=== PATIENT | female | born 1950 | race Caucasian/White ===

== ENCOUNTER → 2020-10-25 14:27 | Outpatient (BNVA) | payer MEDICARE, SELFPAY | PROVIDERS: Family Provider Nurse Practitioner Family; PCP Nurse Practitioner Family; Visit Provider Specialist | DX: R56.9 Unspecified convulsions (principal); I10 Essential (primary) hypertension; G47.33 Obstructive sleep apnea (adult) (pediatric); R20.0 Anesthesia of skin; R20.2 Paresthesia of skin | CPT/HCPCS: 99204 ==

== ENCOUNTER 2020-10-25 16:31 | Outpatient (CLI) | payer MEDICARE, SELFPAY ==
[2020-10-25 21:55] LABS: Vitamin B12 476 pg/mL (232-1245)
== END 2020-10-25 16:32 | disposition home or self-care (01) ==
PROVIDERS: PCP Family Medicine; Visit Provider Specialist
DX: R20.0 Anesthesia of skin (principal); R20.2 Paresthesia of skin
CPT/HCPCS: 36415; 82607

== ENCOUNTER → 2020-11-05 14:50 | Outpatient (BNVA) | payer MEDICARE, SELFPAY | PROVIDERS: PCP Family Medicine; Visit Provider Specialist | DX: R56.9 Unspecified convulsions (principal); G45.0 Vertebro-basilar artery syndrome | CPT/HCPCS: 95816 ==

== ENCOUNTER 2020-11-15 08:02 | Outpatient (CLI) | payer MEDICARE, SELFPAY ==
--- NOTE | 2020-11-15 08:00 | MR_ITS ---
WS: [id number] MRI HEAD WITHOUT CONTRAST TECHNIQUE: Sagittal T1, T2 axial, T2 axial FLAIR, axial and coronal T1 images, axial susceptibility w eighted imaging, axial diffusion weighted images, and coronal T2 images were obtained. CLINICAL INFORMATION: I63.9 - Cerebral infarction, unspecified COMPARISON: None. FINDINGS: No evidence of restricted diffusion to suggest acute ischemia. Ventricular system and basal cisterns are patent. No suspicious intracranial signal abnormalities. Very minimal small vessel changes. Moder ate parenchymal volume loss. Normal posterior fossa. Normal vascular flow voids at the skull base. No extra-axial fluid collection s. No evidence of mass or mass effect. Small amount of fluid in the right mastoid air cells. Normal visualized posterior nasopharynx. Mild m ucosal thickening in the ethmoid air cells. Paranasal sinuses are well aerated. Mild symmetric atroph y temporal lobes and hippocampal formations. Normal optic chiasm and pituitary infundibulum. Normal c avernous sinuses and Meckel's cave. No hemosiderin on susceptibly weighted images. MR/MR head wo con* [id number] IMPRESSION: 1. No evidence of restricted diffusion to suggest acute ischemia. 2. Very minimal small vessel changes. Moderate parenchymal volume loss. 3. No hemosiderin on susceptibly weighted images. 4. Mild symmetric atrophy temporal lobes and hippocampal formations. No signal abnormalities. 5. Small amount of fluid in the right mastoid air cells. Mild mucosal thickeni ng ethmoid air cells. 6. No other significant findings.
--- NOTE | 2020-11-15 08:00 | MR_ITS ---
WS: [id number] MRA HEAD TECHNIQUE: Axial 3-D TOF images obtained with axial images and axial, sagittal, and coronal 2-D refor matted images. CLINICAL INFORMATION: I63.9 - Cerebral infarction, unspecified COMPARISON: None. FINDINGS: Distal vertebral arteries are patent. Left dominant distal right vertebral artery. Basilar artery is patent. Normal vascularity to the GEM EXPERT territory bilaterally. Both ICAs are patent at the skull base. Normal cavernous carotid arteries. Small right A1 segment. Ti ny anterior communicating artery. Normal vascularity to the DERRELL and MCA territories bilaterally. No e vidence of flow-limiting stenosis or aneurysm. Normal optic chiasm and pituitary infundibulum. MR/MR angio head wo con [id number] IMPRESSION: 1. Left dominant distal vertebral artery. Basilar artery is patent. 2. Both ICAs are patent at the skull base. Normal vascularity to the DERRELL and M CA territories bilaterally. 3. Small right A1 segment.
--- NOTE | 2020-11-15 08:08 | MR_ITS ---
WS: [id number] MRA CAROTID WITHOUT AND WITH GADOLINIUM ENHANCEMENT TECHNIQUE: Axial 2-D TOF and gadolinium bolus images obtained with axial images and axial, sagittal, and coronal 2-D reformatted images. CLINICAL INFORMATION: I63.9 - Cerebral infarction, unspecified COMPARISON: None. FINDINGS: Left dominant vertebral artery. Both vertebral arteries are patent. Basilar artery is patent. Right: Right common carotid artery is patent. No significant right ICA stenosis. ICA is patent to the skull base. Left: Left common carotid artery is patent. No significant left ICA stenosis. Left ICA is patent to t he skull base. Normal branching thoracic aorta and great vessel origins. MR/MR angio neck w con* [id number] IMPRESSION: 1. Left dominant vertebral artery. Smaller but patent right vertebral artery. 2. No significant ICA stenosis bilaterally. Both ICAs are patent to the skull base. 3. No other significant findings.
[2020-11-15 09:02] LABS: Blood Urea Nitrogen 24 mg/dL (8-23); Glomerular Filtration Rate 44.5 mL/min (90-130)
[2020-11-15] MEDS: gadobenate dimeglumine 20 mL vial IV (10:27)
== END 2020-11-15 08:03 | disposition home or self-care (01) ==
LOC: RADSHAW 08:04
PROVIDERS: PCP Family Medicine; Visit Provider Specialist
DX: I63.9 Cerebral infarction, unspecified (principal); G31.9 Degenerative disease of nervous system, unspecified
CPT/HCPCS: 36415; 70544; 70548; 70551; 82565; 84520; A9577

== ENCOUNTER → 2021-04-14 09:54 | Outpatient (BNVA) | payer MEDICARE, SELFPAY | PROVIDERS: PCP Family Medicine; Visit Provider Specialist | DX: R42 Dizziness and giddiness (principal); R48.2 Apraxia; R41.3 Other amnesia | CPT/HCPCS: 96116; 99214; 99215 ==

== ENCOUNTER 2021-04-14 11:14 | Outpatient (CLI) | payer MEDICARE, SELFPAY ==
[2021-04-14 11:51] LABS: Basophils # 0.1 10^3/uL (0.0-0.1); Basophils % 0.9 %; Eosinophils # 0.1 10^3/uL (0.0-0.8); Eosinophils % 1.2 %; Hematocrit 39.2 % (37.0-47.0); Hemoglobin 12.9 g/dL (11.5-15.3); Lymphocytes # 3.3 10^3/uL (0.8-4.8); Lymphocytes % 35.2 %; Mean Corpuscular HGB Conc 32.9 g/dL (30.0-36.0); Mean Corpuscular Hemoglobin 31.9 pg (28.0-34.0); Mean Corpuscular Volume 96.8 fL (81-99); Mean Platelet Volume 9.8 fL (7.4-10.4); Monocytes # 0.7 10^3/uL (0.2-0.9); Monocytes % 7.2 %; Neutrophils # 5.09 10^3/uL (1.8-7.7); Nucleated Red Blood Cells % 0 %; Platelet Count 274 10^3/cmm (130-400); Red Blood Count 4.05 10^6/uL (4.1-5.3); Red Cell Distribution Width 12.7 % (12.1-15.1); White Blood Count 9.3 10^3/uL (4.0-10.0)
[2021-04-14 12:19] LABS: Alanine Aminotransferase 14 U/L (0-33); Albumin Level 4.2 g/dL (3.5-5.2); Alkaline Phosphatase 31 IU/L (35-105); Anion Gap 16.8 (5-19); Aspartate Amino Transferase 15 U/L (0-32); Blood Urea Nitrogen 24 mg/dL (8-23); Calcium 9.7 mg/dL (8.5-10.5); Carbon Dioxide 24 mmol/L (22-29); Chloride 100 mmol/L (98-107); Globulin 2.9 g/dL (1.3-4.6); Glomerular Filtration Rate 44.5 mL/min (90-130); Glucose 82 mg/dL (65-115); Osmolality Calculated 285 mOsm/kg (285-295); Potassium 4.8 mmol/L (3.5-5.1); Sodium 136 mmol/L (136-145); Total Bilirubin 0.2 mg/dL (0.15-1.2); Total Protein 7.1 g/dL (6.6-8.7)
[2021-04-14 12:33] LABS: Vitamin B12 909 pg/mL (232-1245)
== END 2021-04-14 11:15 | disposition home or self-care (01) ==
PROVIDERS: PCP Family Medicine; Visit Provider Specialist
DX: N28.9 Disorder of kidney and ureter, unspecified (principal)
CPT/HCPCS: 36415; 80053; 82607; 85025

== ENCOUNTER 2022-05-18 | Outpatient (RCR) | payer MEDICARE, SELFPAY | END 2022-06-05 23:59 | disposition home or self-care (01) | LOC: GPT | PROVIDERS: PCP Family Medicine; Visit Provider Physician Assistant | DX: M43.16 Spondylolisthesis, lumbar region (principal); M47.816 Spondylosis without myelopathy or radiculopathy, lumbar region | CPT/HCPCS: 97110; 97140; 97162 ==

== ENCOUNTER 2022-06-06 06:00 | Outpatient (RCR) | payer MEDICARE, SELFPAY | END 2022-07-06 23:59 | disposition home or self-care (01) | LOC: GPT 06:00 | PROVIDERS: PCP Family Medicine; Visit Provider Physician Assistant | DX: M43.16 Spondylolisthesis, lumbar region (principal); M47.816 Spondylosis without myelopathy or radiculopathy, lumbar region | CPT/HCPCS: 97110; 97112; 97140 ==